=== PATIENT | male | born 1990 | race Caucasian/White ===

== ENCOUNTER 2023-08-09 07:16 | Emergency (ER) | payer BC ==
[2023-08-09 07:29] VITALS: TEMP 96.6
[2023-08-09] MEDS ORDERED: TORAdol 30 mg Injection ONE (07:38)
[2023-08-09] MEDS ORDERED: Sodium Chloride 0.9% 1000 ML 1,000 ML ONE (07:38)
[2023-08-09] MEDS ORDERED: Zofran 4 MG/2 ML VIAL ONE (07:38)
[2023-08-09] MEDS: Sodium Chloride 0.9% 1000 ML 1,000 ML IV STA (07:39)
[2023-08-09] MEDS: Zofran 4 MG/2 ML VIAL IV ONE (07:40)
[2023-08-09] MEDS: TORAdol 30 mg Injection IV ONE (07:40)
--- NOTE | 2023-08-09 07:49 | ERPHSYRPT ---
- History of Present Illness Time Seen by Provider: 08/09/23 07:46 Historian: patient Exam Limitations: no limitations Patient Subjective Stated Complaint: pt c/o of right lateral back pain that woke him up today Triage Nursing Assessment: Pt brought to the ER by his mother, hypertensive, rates pain as 10/10, N&V, denies radiation, no hx of a kidney stone, pulses normal, skin pale/cool, appears to be in moderte pain Physician History: 33-year-old male presents to emergency department for evaluation of right flank pain. Patient awoke with the pain this morning. Pain described as a stabbing sensation that is localized. No radiation. No history of the same. No trauma no fever. No obvious hematuria. Symptoms are severe. Patient rates pain 10 out of 10. Patient vomited once. Pain has gradually improved but not resolved. Patient appears comfortable at the time of my exam. Patient voices no other complaints or concerns at this time. Portions of this note were created with voice recognition technology. There may be grammatical, spelling, punctuation or sound alike errors Timing/Duration: today Activities at Onset: none Quality: stabbing Abdominal Pain Onset Location: flank (Right flank) Pain Radiation: no radiation Severity of Pain-Max: severe Severity of Pain-Current: moderate Modifying Factors: Improves With: nothing Associated Symptoms: vomiting Previous symptoms: no prior history Allergies/Adverse Reactions: No Known Drug Allergies Allergy (Verified 08/09/23 07:29) Home Medications: Amitriptyline HCl 25 mg [Amitriptyline 25 mg Tablet] 25 mg PO DAILY 08/09/23 [History] Cyanocobalamin 1000 Mcg/ml [Cyanocobalamin B-12 1000 MCG/ML] 1,000 mcg SQ UD 08/09/23 [History] PARoxetine HCL [Paxil] 30 mg PO DAILY 08/09/23 [History] Hx Tetanus, Diphtheria Vaccination/Date Given: Yes Hx Influenza Vaccination/Date Given: No Hx Pneumococcal Vaccination/Date Given: No Travel Risk - International Travel Have you traveled outside of the country in past 3 weeks: No - Emerging Infectious Disease Are you exhibiting symptoms associated with any current EIDs: No - Review of Systems Constitutional: No Symptoms, No Fever, No Chills Eyes: No Symptoms Ears, Nose, & Throat: No Symptoms Respiratory: No Symptoms, No Cough, No Dyspnea Cardiac: No Symptoms, No Chest Pain, No Edema, No Syncope Abdominal/Gastrointestinal: No Symptoms, No Abdominal Pain, No Nausea, No Vomiting, No Diarrhea Genitourinary Symptoms: No Symptoms, No Dysuria Musculoskeletal: No Symptoms, No Back Pain, No Neck Pain Skin: No Symptoms, No Rash Neurological: No Symptoms, No Dizziness, No Focal Weakness, No Sensory Changes Psychological: No Symptoms Endocrine: No Symptoms Hematologic/Lymphatic: No Symptoms Immunological/Allergic: No Symptoms All Other Systems: Reviewed and Negative - Past Medical History Pertinent Past Medical History: Yes Neurological History: No Pertinent History ENT History: No Pertinent History Cardiac History: No Pertinent History Respiratory History: No Pertinent History Endocrine Medical History: No Pertinent History Musculoskeletal History: No Pertinent History GI Medical History: No Pertinent History Psycho-Social History: Depression - Past Surgical History Past Surgical History: Yes Other Surgical History: removal of extra skin flap (toe with no bone) - Social History Smoking Status: Never smoker Exposure to second hand smoke: No Drug Use: none Patient Lives Alone: No - Nursing Vital Signs Nursing Vital Signs: Initial Vital Signs Temperature 96.6 F 08/09/23 07:22 Pulse Rate 77 08/09/23 07:22 Blood Pressure 178/101 08/09/23 07:22 O2 Sat by Pulse Oximetry 99 08/09/23 07:22 Pain Scale Pain Intensity 0 - Physical Exam General Appearance: no apparent distress, alert Eye Exam: PERRL/EOMI, eyes nml inspection Ears, Nose, Throat Exam: normal ENT inspection, pharynx normal, moist mucous membranes Neck Exam: normal inspection, non-tender, supple, full range of motion Respiratory Exam: normal breath sounds, lungs clear, airway intact, No respiratory distress Cardiovascular Exam: regular rate/rhythm, normal heart sounds, normal peripheral pulses Gastrointestinal/Abdomen Exam: soft, other (Right CVA tenderness), No tenderness, No mass Back Exam: normal inspection, normal range of motion, No CVA tenderness, No vertebral tenderness Extremity Exam: normal inspection, normal range of motion, pelvis stable Neurologic Exam: alert, oriented x 3, cooperative, sensation nml, No motor de ficits Skin Exam: normal color, warm, dry Lymphatic Exam: No adenopathy SpO2 Interpretation: normal SpO2: 99 O2 Delivery: Room Air - Course Nursing assessment & vital signs reviewed: Yes - CT Exams Abdomen/Pelvis CT Interpretation: Tele-radiologist Report (Fatty pancreas, nephrolithiasis right side, urinary bladder stone likely passed ureterolithiasis) Ordered Tests: Active Orders 24 hr Category Date Time Status IV Insertion STAT Care 08/09/23 07:34 Active ABDOMEN AND PELVIS W/0 CONTRAS [CT] Stat Exams 08/09/23 07:34 Completed CBC W DIFF Stat Lab 08/09/23 07:50 Completed CMP Stat Lab 08/09/23 07:50 Completed UA W/RFX UR CULTURE Stat Lab 08/09/23 07:48 Completed Medication Summary Discontinued Medications Generic Name Dose Route Start Last Admin Trade Name Freq PRN Reason Stop Dose Admin Sodium Chloride 1,000 mls @ 999 mls/hr 08/09/23 07:34 08/09/23 08:57 Sodium Chloride 0.9% 1000 Ml IV 08/09/23 08:34 Infused .Q1H1M STA Infusion Sodium Chloride Confirm 08/09/23 07:38 Sodium Chloride 0.9% 1000 Ml Administered 08/09/23 07:39 Dose 1,000 mls @ ud .ROUTE .STK-MED ONE Ketorolac Tromethamine 30 mg 08/09/23 07:34 08/09/23 07:40 Ketorolac Tromethamine 30 Mg/Ml Inj IV 08/09/23 07:35 30 mg STAT ONE Administration Ketorolac Tromethamine Confirm 08/09/23 07:38 Ketorolac Tromethamine 30 Mg/Ml Inj Administered 08/09/23 07:39 Dose 30 mg .ROUTE .STK-MED ONE Ondansetron HCl 4 mg 08/09/23 07:34 08/09/23 07:40 Ondansetron Hcl 4 Mg/2 Ml Vial IV 08/09/23 07:35 4 mg STAT ONE Administration Ondansetron HCl Confirm 08/09/23 07:38 Ondansetron Hcl 4 Mg/2 Ml Vial Administered 08/09/23 07:39 Dose 4 mg .ROUTE .STK-MED ONE Potassium Chloride 40 meq 08/09/23 08:59 08/09/23 09:01 Potassium Chloride Tab 10 Meq Tab PO 08/09/23 09:00 40 meq STAT ONE Administration Potassium Chloride Confirm 08/09/23 09:01 Potassium Chloride Tab 10 Meq Tab Administered 08/09/23 09:02 Dose 40 meq .ROUTE .STK-MED ONE Lab/Rad Data: Laboratory Result Diagrams 08/09/23 07:50 08/09/23 07:50 Laboratory Results 08/09/23 08/09/23 08/09/23 Range/Units 07:50 07:50 07:48 WBC 7.0 (4.0-10.5) x10^3/uL RBC 4.35 (4.1-5.6) x10^6/uL Hgb 13.9 (12.5-18.0) g/dL Hct 41.4 L (42-50) % MCV 95.2 (78-100) fL MCH 32.0 (26-32) pg MCHC 33.6 (32-36) g/dL RDW 12.2 (11.5-14.0) % Plt Count 199 (150-450) x10^3/uL MPV 12.1 H (7.5-11.0) fL Gran % 52.8 (36.0-66.0) % Immature Gran % (Auto) 0.1 (0.00-0.4) % Nucleat RBC Rel Count 0.0 (0.00-0.1) % Eos # (Auto) 0.15 (0-0.5) x10^3/uL Immature Gran # (Auto) 0.01 (0.00-0.03) x10^3u/L Absolute Lymphs (auto) 2.48 (1.0-4.6) x10^3/uL Absolute Monos (auto) 0.63 (0.0-1.3) x10^3/uL Absolute Nucleated RBC 0.00 (0.00-0.01) x10^3u/L Lymphocytes % 35.3 (24.0-44.0) % Monocytes % 9.0 (0.0-12.0) % Eosinophils % 2.1 (0.00-5.0) % Basophils % 0.7 (0.0-0.4) % Absolute Granulocytes 3.70 (1.4-6.9) x10^3/uL Basophils # 0.05 (0-0.4) x10^3/uL Sodium 143 (135-145) mmol/L Potassium 3.4 L (3.5-5.1) mmol/L Chloride 108 H (98-107) mmol/L Carbon Dioxide 23 (22-30) mmol/L Anion Gap 15.4 H (5-15) MEQ/L BUN 11 (9-20) mg/dL Creatinine 1.07 (0.66-1.25) mg/dL Estimated GFR 94.6 ML/MIN Glucose 134 H (74-106) mg/dL Calcium 9.2 (8.4-10.2) mg/dL Total Bilirubin 0.60 (0.2-1.3) mg/dL AST 42 (17-59) U/L ALT 68 H (0-50) U/L Alkaline Phosphatase 62 (38-126) U/L Serum Total Protein 7.7 (6.3-8.2) g/dL Albumin 4.4 (3.5-5.0) g/dL Urine Color Yellow (Yellow) Urine Appearance Clear (Clear) Urine pH 5.0 (4.6-8.0) Ur Specific [place] 1.020 (1.005-1.030) Urine Protein 30 (Negative) Urine Glucose (UA) Negative (Negative) mg/dL Urine Ketones Negative (Negative) Urine Blood Negative (Negative) Urine Nitrite Negative (Negative) Urine Bilirubin Negative (Negative) Urine Urobilinogen 0.2 (0.2) mg/dL Ur Leukocyte Esterase Negative (Negative) U Hyaline Cast (Auto) NONE SEEN (0-2) /LPF Urine Microscopic RBC 0-2 (0-5) /HPF Urine Microscopic WBC 0-2 (0-5) /HPF Ur Epithelial Cells None Seen (None Seen) /HPF Urine Bacteria None Seen (None Seen) /HPF Urine Culture Reflexed NO (NO) - Progress Progress: improved Progress Note: 33-year-old male presents to our ED for evaluation of pain to his right flank. Pain was of acute onset started this morning. Upon arrival to our ED pain had improved somewhat. No trauma no fever no hematuria. Physical exam reveals right-sided CVA tenderness. CT abdomen pelvis reveals right nephrolithiasis with a bladder stone. Patient likely had a brief ureteral lithiasis that passed into the bladder. Patient is currently pain-free. Patient given a urine strainer which is intended to catch the bladder stone upon passing. Patient to present the stone to his primary care doctor for analysis. Renal function within normal limits. No urinary tract infection. Potassium was 3.4. Oral potassium replacement administered. Patient states he is ready for discharge. Will discharge patient this time. He voices no other complaints or concerns at this time. Portions of this note were created with voice recognition technology. There may be grammatical, spelling, punctuation or sound alike errors Complexity problem addressed is moderate acute complicated No critical care time Complexity of data reviewed and analyzed is moderate. Test ordered test reviewed results analyzed and correlated clinically with history and physical examination. Risk of complication and or risk of morbidity/mortality patient management is moderate. A prescription for Toradol forwarded to patient's pharmacy. Vital stable. Time spent to discharge patient is approximately 15 minutes. Plan of care established for shared decision making. No social determinants of health present impede follow-up. Portions of this note were created with voice recognition technology. There may be grammatical, spelling, punctuation or sound alike errors 08/09/23 09:06 Counseled pt/family regarding: lab results, diagnosis, need for follow-up, rad results - Departure Departure Disposition: Home Clinical Impression: Bladder calculus, Nephrolithiasis, Flank pain, Hypokalemia Condition: Stable Critical Care Time: No Referrals: JOSTIN VELAZQUEZ [Primary Care Provider] - Follow up/PCP as directed Additional Instructions: Discharge/Care Plan ANGELBLACK LOPEZ was seen on 08/09/23 in the Emergency Room. The patient was counseled regarding Diagnosis,Lab results, Imaging studies, need for follow up and when to return to the Emergency Room. Prescriptions given: Discharge Note I have spoken with the patient and/or caregivers. I have explained the patient's condition, diagnosis and treatment plan based on the information available to me at this time. I have answered the patient's and/or caregiver's questions and a ddressed any concerns. The patient and/or caregivers have as good understanding of the patient's diagnosis, condition and treatment plan as can be expected at this point. The vital signs have been stable. The patient's condition is stable and appropriate for discharge from the emergency department. The patient will pursue further outpatient evaluation with the primary care physician or other designated or consulting physician as outlined in the discharge instructions. The patient and/or caregivers are agreeable to this plan of care and follow-up instructions have been explained in detail. The patient and/or caregivers have received these instruction. The patient/and or caregivers are aware that any significant change in condition or worsening of symptoms should prompt an immediate return to this or the closest emergency department or call 911. Prescriptions: Ketorolac Trometh 10 mg Tab [TORAdol 10 MG TABLET] 10 mg PO TID 5 Days #15 tablet
[2023-08-09 07:57] LABS: BASOPHIL % 0.7 % (0.0-0.4); Basophil (Absolute #) 0.05 x10^3/uL (0-0.4); Eosinophil % 2.1 % (0.00-5.0); Eosinophil (Absolute #) 0.15 x10^3/uL (0-0.5); Hematocrit 41.4 % (42-50); Hemoglobin 13.9 g/dL (12.5-18.0); IMMATURE GRAN # 0.01 x10^3u/L (0.00-0.03); IMMATURE GRAN % 0.1 % (0.00-0.4); Lymphocyte (Absolute #) 2.48 x10^3/uL (1.0-4.6); Lymphocytes % 35.3 % (24.0-44.0); Mean Cell Volume 95.2 fL (78-100); Mean Corpuscular Hgb Concent. 33.6 g/dL (32-36); Mean Platelet Volume 12.1 fL (7.5-11.0); Monocyte (Absolute #) 0.63 x10^3/uL (0.0-1.3); Neutrophil % 52.8 % (36.0-66.0); Platelet Count 199 x10^3/uL (150-450); Red Blood Count 4.35 x10^6/uL (4.1-5.6); Red Cell Distribution Width 12.2 % (11.5-14.0)
[2023-08-09 08:06] LABS: Appearance Clear (Clear); Bacteria None Seen /HPF (None Seen); Bilirubin Negative (Negative); Blood Negative (Negative); Epithelial Cells None Seen /HPF (None Seen); Glucose, Urine Negative (Negative); Hyaline Casts NONE SEEN /LPF (0-2); Ketones Negative (Negative); Leukocyte Esterase Negative (Negative); Nitrite Negative (Negative); Protein,Urine Dip 30 (Negative); RBC 0-2 /HPF (0-5); Urobilinogen 0.2 mg/dL (0.2); WBC 0-2 /HPF (0-5)
[2023-08-09 08:10] LABS: ALBUMIN 4.4 g/dL (3.5-5.0); ANION GAP 15.4 MEQ/L (5-15); BILIRUBIN,TOTAL 0.6 mg/dL (0.2-1.3); Calcium 9.2 mg/dL (8.4-10.2); Creatinine 1 1.07 mg/dL (0.66-1.25); EST GLOMERULAR FILTRATION RATE 94.6 ML/MIN; Potassium 3.4 mmol/L (3.5-5.1); Total Protein 7.7 g/dL (6.3-8.2)
[2023-08-09 08:17] LABS: ADD URINE CULTURE? NO (NO)
--- NOTE | 2023-08-09 08:48 | XRAY ---
Indication: Pain. Multiple contiguous axial images obtained through the abdomen and pelvis without contrast. Comparison: None Lung bases clear of infiltrate and effusion. Heart not enlarged. Noncontrasted stomach and bowel loops appear nonobstructed with normal appendix. Pancreas demonstrates diffuse fatty replacement. Right kidney demonstrates 2 nonobstructing micro-calculi, largest 2 mm. Urinary bladder demonstrates 1-2 mm posterior right calculus. No free fluid/air. Remaining liver, gallbladder, pancreas, spleen, adrenal glands, kidneys, ureters, bladder, and aorta are unremarkable for noncontrast exam. Osseous structures intact. Impression: 1-2 mm posterior right urinary bladder calculus. Additional 2 right renal micro-calculi. Remaining CT abdomen/pelvis without contrast exam is negative.
[2023-08-09] MEDS: Klor Con PO ONE (09:01)
[2023-08-09] MEDS ORDERED: Klor Con ONE (09:01)
[2023-08-09 09:03] VITALS: O2SAT 99
[2023-08-09 09:04] VITALS: BP 132/77; PULSE 76
== END 2023-08-09 09:22 | disposition home or self-care (01) ==
LOC: ED 07:16
DX: N21.0 Calculus in bladder (principal); N20.0 Calculus of kidney; R10.9 Unspecified abdominal pain; E87.6 Hypokalemia
CPT/HCPCS: 36415; 74176; 80053; 81001; 85025; 96360; 96374; 96375; 99284; J1885; J2405; A9270-GY

== ENCOUNTER 2024-05-23 03:29 | Emergency (ER) | payer BC ==
[2024-05-23 03:50] VITALS: PULSE 76; RESP 20; TEMP 97.2
[2024-05-23 04:01] LABS: Absolute Neutrophil Ct (ANC) 3.64 x10^3/uL (1.78-5.38); BASOPHIL % 0.8 % (0.2-1.2); Basophil (Absolute #) 0.05 x10^3/uL (0.01-0.08); Eosinophil % 3.3 % (0.8-7.0); Hematocrit 42.5 % (40.1-51.0); Hemoglobin 14.7 g/dL (13.7-17.5); IMMATURE GRAN # 0.01 x10^3u/L (0.001-0.031); IMMATURE GRAN % 0.2 % (0.001-0.429); Lymphocyte (Absolute #) 1.42 x10^3/uL (1.32-3.57); Lymphocytes % 23.3 % (21.8-53.1); Mean Cell Volume 92.8 fL (79.0-92.2); Mean Corpuscular Hemoglobin 32.1 pg (25.7-32.2); Mean Corpuscular Hgb Concent. 34.6 g/dL (32.3-36.5); Mean Platelet Volume 11.5 fL (9.4-12.4); Monocyte (Absolute #) 0.77 x10^3/uL (0.30-0.82); Monocytes % 12.6 % (5.3-12.2); Neutrophil % 59.8 % (34.0-67.9); Platelet Count 163 x10^3/uL (163-337); Red Blood Count 4.58 x10^6/uL (4.63-6.08); Red Cell Distribution Width 12.7 % (11.6-14.4); White Blood Count 6.1 x10^3/uL (4.23-9.07)
[2024-05-23 04:07] LABS: Appearance Clear (Clear); Bacteria None Seen /HPF (None Seen); Bilirubin Negative (Negative); Blood Large (Negative); Epithelial Cells Rare /HPF (None Seen); Glucose, Urine Negative (Negative); Ketones Trace (Negative); Leukocyte Esterase Trace (Negative); Nitrite Negative (Negative); Ph 5.5 (4.6-8.0); Protein,Urine Dip 100 (Negative); RBC >100 /HPF (0-5)
--- NOTE | 2024-05-23 04:09 | ERPHSYRPT ---
- History of Present Illness Time Seen by Provider: 05/23/24 04:05 Historian: patient Exam Limitations: no limitations Patient Subjective Stated Complaint: Right sided flank pain Triage Nursing Assessment: Patient ambulated back to ED and transferred self to bed. Patient A+O X3. Patient's skin pale and diaphoretic. Patient states he was woke up around 0200 am with right sided flank pain 9/10 and took PO toradol 10mg and the pain got better. Patient complains of right sided flank pain 6/10. Patient complains of nausea, but denies vomiting or diarrhea. Abdomen soft and round with BS X 4. Patient states he has a hx of kidney stones and feels like this is the same thing. Physician History: Patient is a 34-year-old male presents to emergency department for evaluation of right-sided flank pain. Patient awoke this morning at approximately 2 AM with pain. Patient was diagnosed with a kidney stone last July. Patient states symptoms are the same. At that time patient was advised that his right kidney had 2 stones. Shortly after the onset of patient's pain he took a Toradol residual from his last bout of flank pain. Pain improved. Pain is currently 6 out of 10. Mild nausea no vomiting or diarrhea. No trauma no fever. Symptoms are mild to moderate in intensity. No specific worsening improving factors. Patient denies hematuria. He voices no other complaints or concerns at this time. Portions of this note were created with voice recognition technology. There may be grammatical, spelling, punctuation or sound alike errors Timing/Duration: today Activities at Onset: none Quality: aching Abdominal Pain Onset Location: flank (Right flank) Pain Radiation: no radiation Severity of Pain-Max: moderate Severity of Pain-Current: mild Modifying Factors: Improves With: nothing Associated Symptoms: denies symptoms Previous symptoms: same symptoms as today Allergies/Adverse Reactions: No Known Drug Allergies Allergy (Verified 05/23/24 03:45) Home Medications: Cyanocobalamin 1000 Mcg/ml [Cyanocobalamin B-12 1000 MCG/ML] 1,000 mcg SQ UD 08/09/23 [History] PARoxetine HCL [Paxil] 30 mg PO DAILY 08/09/23 [History] Hx Tetanus, Diphtheria Vaccination/Date Given: Yes Hx Influenza Vaccination/Date Given: Yes Hx Pneumococcal Vaccination/Date Given: No Immunizations Up to Date: Yes Travel Risk - International Travel Have you traveled outside of the country in past 3 weeks: No - Emerging Infectious Disease Are you exhibiting symptoms associated with any current EIDs: No - Review of Systems Constitutional: No Symptoms, No Fever, No Chills Eyes: No Symptoms Ears, Nose, & Throat: No Symptoms Respiratory: No Symptoms, No Cough, No Dyspnea Cardiac: No Chest Pain, No Edema, No Syncope Abdominal/Gastrointestinal: No Symptoms, No Abdominal Pain, No Nausea, No Vomiting, No Diarrhea Genitourinary Symptoms: No Symptoms, No Dysuria Musculoskeletal: No Symptoms, No Back Pain, No Neck Pain Skin: No Symptoms, No Rash Neurological: No Symptoms, No Dizziness, No Focal Weakness, No Sensory Changes Psychological: No Symptoms Endocrine: No Symptoms Hematologic/Lymphatic: No Symptoms Immunological/Allergic: No Symptoms All Other Systems: Reviewed and Negative - Past Medical History Pertinent Past Medical History: Yes Neurological History: No Pertinent History ENT History: No Pertinent History Cardiac History: No Pertinent History Respiratory History: No Pertinent History Endocrine Medical History: No Pertinent History Musculoskeletal History: No Pertinent History GI Medical History: No Pertinent History Psycho-Social History: Depression - Past Surgical History Past Surgical History: Yes Other Surgical History: removal of extra skin flap (toe with no bone) - Social History Smoking Status: Never smoker Exposure to second hand smoke: No Drug Use: none Patient Lives Alone: No - Social Determinants of Health Will the patient participate in the screening: Yes Do you worry about a steady place to live?: No Do you have any problems with any of the following?: No known problems In the past 12 months,have you had to go without utilities?: No Transportation Issues: No Has anyone in your support network made you feel unsafe?: No Have you or anyone in your house had to go without enough: No - Nursing Vital Signs Nursing Vital Signs: Initial Vital Signs Blood Pressure 157/92 05/23/24 03:45 O2 Sat by Pulse Oximetry 92 L 05/23/24 03:45 Pain Scale Pain Intensity 3 - Physical Exam General Appearance: no apparent distress, alert Eye Exam: PERRL/EOMI, eyes nml inspection Ears, Nose, Throat Exam: normal ENT inspection, pharynx normal, moist mucous membranes Neck Exam: normal inspection, full range of motion Respiratory Exam: normal breath sounds, lungs clear, No respiratory distress Cardiovascular Exam: regular rate/rhythm, normal heart sounds Gastrointestinal/Abdomen Exam: soft, No tenderness, No mass Back Exam: normal inspection, normal range of motion, No CVA tenderness, No vertebral tenderness Extremity Exam: normal inspection, normal range of motion Neurologic Exam: alert, oriented x 3, cooperative, normal mood/affect, sensation nml, No motor deficits Skin Exam: normal color, warm, dry Lymphatic Exam: No adenopathy SpO2 Interpretation: normal SpO2: 98 O2 Delivery: Room Air - Course Nursing assessment & vital signs reviewed: Yes Ordered Tests: Active Orders 24 hr Category Date Time Status Program Counselor STAT Care 05/23/24 03:55 Active IV Insertion STAT Care 05/23/24 03:54 Active Pulse Oximetry (ED) STAT Care 05/23/24 03:54 Active ABDOMEN AND PELVIS W/0 CONTRAS [CT] Stat Exams 05/23/24 04:18 Completed CBC W DIFF Stat Lab 05/23/24 03:58 Completed CMP Stat Lab 05/23/24 03:58 Completed CULTURE,URINE Stat Lab 05/23/24 03:58 Received UA W/RFX UR CULTURE Stat Lab 05/23/24 03:58 Completed Medication Summary Generic Name Dose Route Start Last Admin Trade Name Freq PRN Reason Stop Dose Admin Tamsulosin HCl 0.4 mg 05/23/24 10:00 05/23/24 05:47 Tamsulosin Hcl 0.4 Mg Cap PO 06/22/24 09:59 0.4 mg DAILY KENRICK Administration Discontinued Medications Generic Name Dose Route Start Last Admin Trade Name Freq PRN Reason Stop Dose Admin Sodium Chloride 1,000 mls @ 999 mls/hr 05/23/24 03:54 05/23/24 04:47 Sodium Chloride 0.9% 1000 Ml IV 05/23/24 04:54 999 mls/hr .Q1H1M STA Administration Sodium Chloride Confirm 05/23/24 04:46 Sodium Chloride 0.9% 1000 Ml Administered 05/23/24 04:47 Dose 1,000 mls @ ud .ROUTE .STK-MED ONE Morphine Sulfate 2 mg 05/23/24 03:56 05/23/24 04:47 Morphine Sulfate 2 Mg/Ml Inj IV 05/23/24 03:57 2 mg STAT ONE Administration Morphine Sulfate Confirm 05/23/24 04:46 Morphine Sulfate 2 Mg/Ml Inj Administered 05/23/24 04:47 Dose 2 mg .ROUTE .STK-MED ONE Morphine Sulfate 2 mg 05/23/24 05:35 05/23/24 05:47 Morphine Sulfate 2 Mg/Ml Inj IV 05/23/24 05:36 2 mg STAT ONE Administration Morphine Sulfate Confirm 05/23/24 05:44 Morphine Sulfate 2 Mg/Ml Inj Administered 05/23/24 05:45 Dose 2 mg .ROUTE .STK-MED ONE Ondansetron HCl 4 mg 05/23/24 03:56 05/23/24 04:46 Ondansetron Hcl 4 Mg/2 Ml Vial IV 05/23/24 03:57 4 mg STAT ONE Administration Ondansetron HCl Confirm 05/23/24 04:45 Ondansetron Hcl 4 Mg/2 Ml Vial Administered 05/23/24 04:46 Dose 4 mg .ROUTE .STK-MED ONE Potassium Chloride 40 meq 05/23/24 05:28 05/23/24 05:46 Potassium Chloride Tab 10 Meq Tab PO 05/23/24 05:29 40 meq STAT ONE Administration Potassium Chloride Confirm 05/23/24 05:45 Potassium Chloride Tab 10 Meq Tab Administered 05/23/24 05:46 Dose 40 meq .ROUTE .STK-MED ONE Lab/Rad Data: Laboratory Result Diagrams 05/23/24 03:58 05/23/24 03:58 Laboratory Results 05/23/24 05/23/24 05/23/24 Range/Units 03:58 03:58 03:58 WBC 6.1 (4.23-9.07) x10^3/uL RBC 4.58 L (4.63-6.08) x10^6/uL Hgb 14.7 (13.7-17.5) g/dL Hct 42.5 (40.1-51.0) % MCV 92.8 H (79.0-92.2) fL MCH 32.1 (25.7-32.2) pg MCHC 34.6 (32.3-36.5) g/dL RDW 12.7 (11.6-14.4) % Plt Count 163 (163-337) x10^3/uL MPV 11.5 (9.4-12.4) fL Gran % 59.8 (34.0-67.9) % Immature Gran % (Auto) 0.2 (0.001-0.429) % Nucleat RBC Rel Count 0.0 (0.00-0.2) % Eos # (Auto) 0.20 (0.04-0.54) x10^3/uL Immature Gran # (Auto) 0.01 (0.001-0.031) x10^3u/L Absolute Lymphs (auto) 1.42 (1.32-3.57) x10^3/uL Absolute Monos (auto) 0.77 (0.30-0.82) x10^3/uL Absolute Nucleated RBC 0.00 (0.00-0.012) x10^3u/L Lymphocytes % 23.3 (21.8-53.1) % Monocytes % 12.6 H (5.3-12.2) % Eosinophils % 3.3 (0.8-7.0) % Basophils % 0.8 (0.2-1.2) % Absolute Granulocytes 3.64 (1.78-5.38) x10^3/uL Basophils # 0.05 (0.01-0.08) x10^3/uL Sodium 141 (135-145) mmol/L Potassium 3.2 L (3.5-5.1) mmol/L Chloride 102 (98-107) mmol/L Carbon Dioxide 28 (22-30) mmol/L Anion Gap 13.4 (5-15) MEQ/L BUN 17 (9-20) mg/dL Creatinine 1.20 (0.66-1.25) mg/dL Estimated GFR 81.9 ML/MIN Glucose 115 H (74-106) mg/dL Calcium 8.9 (8.4-10.2) mg/dL Total Bilirubin 0.80 (0.2-1.3) mg/dL AST 43 (17-59) U/L ALT 42 (0-50) U/L Alkaline Phosphatase 53 (38-126) U/L Serum Total Protein 7.7 (6.3-8.2) g/dL Albumin 4.6 (3.5-5.0) g/dL Urine Color Dark Yellow (Yellow) Urine Appearance Clear (Clear) Urine pH 5.5 (4.6-8.0) Ur Specific [place] 1.020 (1.005-1.030) Urine Protein 100 A (Negative) Urine Glucose (UA) Negative (Negative) mg/dL Urine Ketones Trace A (Negative) Urine Blood Large A (Negative) Urine Nitrite Negative (Negative) Urine Bilirubin Negative (Negative) Urine Urobilinogen 1.0 A (0.2) mg/dL Ur Leukocyte Esterase Trace A (Negative) U Hyaline Cast (Auto) 3-5 A (0-2) /LPF Urine Microscopic RBC >100 A (0-5) /HPF Urine Microscopic WBC 6-10 A (0-5) /HPF Ur Epithelial Cells Rare (None Seen) /HPF Urine Bacteria None Seen (None Seen) /HPF Urine Culture Reflexed YES (NO) - Progress Progress: improved Progress Note: Case discussed with urologist. We discussed the size of the stone and the location the hydroureter hydronephrosis the patient's pain level and the urinalysis including the urine WBC 6-10 with trace leukocyte esterase concerning for UTI. Urologist advised that patient may go home on Levaquin for 1 week. Patient 34-year-old male presents to our ED for evaluation of acute onset right flank pain. CT scan reveals a 3 mm UVJ stone with hydroureter hydronephrosis. Patient's pain controlled with morphine. Urinalysis suggestive of possible UTI. Patient reassessed. Pain significantly improved. Patient states he is ready for discharge. We will discharge patient home with Levaquin tamsulosin, [place] Toradol for pain control. Patient agrees to follow-up with Dr. Steve within 48 hours for reevaluation. He voices no other complaints or concerns at this time. Portions of this note were created with voice recognition technology. There may be grammatical, spelling, punctuation or sound alike errors Complexity of problem addressed is moderate acute complicated. No critical care time. Complexity of problem addressed is moderate acute complicated. No cr itical care time. Complex of data reviewed and analyzed is extensive. Test ordered chest reviewed results analyzed and correlated clinically with history and physical exam. Management discussed with urologist as stated above. Risk of complication and or risk of morbidity/mortality of patient management is moderate. Patient discharged home with Toradol, Levaquin [place] and tamsulosin. Vital stable. Time spent to discharge patient is approximately 20 minutes. Plan of care established for shared decision making. No social determinants of health present to impede follow-up. Portions of this note were created with voice recognition technology. There may be grammatical, spelling, punctuation or sound alike errors 05/23/24 06:15 Counseled pt/family regarding: lab results, diagnosis - Departure Departure Disposition: Home Clinical Impression: Hypokalemia, Ureterolithiasis, Hydroureter, Hydronephrosis, Renal colic Condition: Stable Critical Care Time: No Referrals: JOSTIN VELAZQUEZ [Primary Care Provider] - Follow up/PCP as directed Additional Instructions: Discharge/Care Plan BLACK ORTIZ was seen on 05/23/24 in the Emergency Room. The patient was counseled regarding Diagnosis,Lab results, Imaging studies, need for follow up and when to return to the Emergency Room. Prescriptions given: Discharge Note I have spoken with the patient and/or caregivers. I have explained the patient's condition, diagnosis and treatment plan based on the information available to me at this time. I have answered the patient's and/or caregiver's questions and addressed any concerns. The patient and/or caregivers have as good understanding of the patient's diagnosis, condition and treatment plan as can be expected at this point. The vital signs have been stable. The patient's condition is stable and appropriate for discharge from the emergency department. The patient will pursue further outpatient evaluation with the primary care physician or other designated or consulting physician as outlined in the discharge instructions. The patient and/or caregivers are agreeable to this plan of care and follow-up instructions have been explained in detail. The patient and/or caregivers have received these instruction. The patient/and or caregivers are aware that any significant change in condition or worsening of symptoms should prompt an immediate return to this or the closest emergency department or call 911. Prescriptions: Hydrocodone/APAP 5/325 [[place] 5/325 mg] 1 each PO Q6H PRN PRN #10 tablet MDD 4 PRN Reason: Pain Tamsulosin HCl 0.4 mg [Flomax 0.4 MG] 0.4 mg PO DAILY 14 Days #14 cap Levofloxacin [Levaquin 500 MG Tablet] 500 mg PO DAILY 7 Days #7 tablet Ketorolac Trometh 10 mg Tab [TORAdol 10 MG TABLET] 10 mg PO TID 5 Days #15 tablet
[2024-05-23 04:12] LABS: ALBUMIN 4.6 g/dL (3.5-5.0); ANION GAP 13.4 MEQ/L (5-15); BILIRUBIN,TOTAL 0.8 mg/dL (0.2-1.3); Calcium 8.9 mg/dL (8.4-10.2); Creatinine 1 1.2 mg/dL (0.66-1.25); EST GLOMERULAR FILTRATION RATE 81.9 ML/MIN; Potassium 3.2 mmol/L (3.5-5.1); Total Protein 7.7 g/dL (6.3-8.2)
[2024-05-23] MEDS ORDERED: Zofran 4 MG/2 ML VIAL ONE (04:45)
[2024-05-23] MEDS ORDERED: MORPHINE SULFATE 2 MG INJ ONE ×2 (04:46→05:44)
[2024-05-23] MEDS ORDERED: Sodium Chloride 0.9% 1000 ML 1,000 ML ONE (04:46)
[2024-05-23] MEDS: Zofran 4 MG/2 ML VIAL IV ONE (04:46)
[2024-05-23] MEDS: Sodium Chloride 0.9% 1000 ML 1,000 ML IV STA (04:47)
[2024-05-23] MEDS: MORPHINE SULFATE 2 MG INJ IV ONE ×2 (04:47→05:47)
--- NOTE | 2024-05-23 05:26 | XRAY ---
CLINICAL HISTORY: Flank pain COMPARISON: 09 August 2023 TECHNIQUE: Contiguous axial images were obtained from the level of the diaphragm to the pubic symphysis without intravenous or oral contrast. Coronal and sagittal reconstructions were likewise performed and indicated to increase the sensitivity for detecting clinically relevant pathology. CT scan was performed according to ALARA (as low as reasonable achievable). FINDINGS: The visualized lung bases are clear. Evaluation of the abdominal and pelvic visceral organs is limited without intravenous contrast. The unenhanced liver, spleen, pancreas, and adrenal glands are grossly unremarkable. Pancreas shows diffuse fatty infiltration. he gallbladder is present. The kidneys are normal in size and attenuation without obvious calcification. Right kidney shows hydronephrosis and hydroureter up to an obstructing calculus of size 3.0 mm is noted in right lower ureter, just proximal to vesicoureteric junction. No adenopathy or fluid collections are seen. No evidence of focal or diffuse bowel wall thickening or evidence of bowel obstruction is seen. The appendix is visualized in the right lower quadrant and appears within normal limits. The aorta is normal in caliber. The urinary bladder is normal in contour. Pelvic viscera are grossly unremarkable. No aggressive appearing osseous lesions are identified. IMPRESSION: Right kidney shows hydronephrosis and hydroureter up to an obstructing calculus of size 3.0 mm is noted in right lower ureter, just proximal to vesicoureteric junction.-new finding. At present no obvious nephrolithiasis. Prior right vesicoureteric Junction is passed out. Electronically Signed by: Aly Franco MD. (05/23/2024 05:21:58 EST)
[2024-05-23] MEDS ORDERED: Flomax 0.4 MG ONE (05:44)
[2024-05-23] MEDS ORDERED: Klor Con ONE (05:45)
[2024-05-23] MEDS: Klor Con PO ONE (05:46)
[2024-05-23] MEDS: Flomax 0.4 MG PO SCH (05:47)
[2024-05-23 06:13] VITALS: BP 129/78
[2024-05-23 06:21] VITALS: O2SAT 98
== END 2024-05-23 07:00 | disposition home or self-care (01) ==
LOC: ED 03:29
DX: N13.2 Hydronephrosis with renal and ureteral calculous obstruction (principal); E87.6 Hypokalemia; N23 Unspecified renal colic; Z79.891 Long term (current) use of opiate analgesic; Z79.899 Other long term (current) drug therapy
CPT/HCPCS: 36415; 74176; 80053; 81001; 85025; 87086; 93041; 94760; 96360; 96374; 96375; 99284; 99285; J2270; J2405; A9270-GY